=== PATIENT | female | born 1985 | race Caucasian/White ===

== ENCOUNTER 2020-01-03 16:43 | Emergency (ER) | payer OTHER ==
[~2020-01-03] VITALS: Ht 147.3 cm; Wt 53.5 kg
[2020-01-03 16:49] VITALS: BP_SYST 129
--- NOTE | 2020-01-03 16:55 | NUR ---
AMBULATED TO BED 8
--- NOTE | 2020-01-03 17:00 | NUR ---
HILDA TO ASSUME CARE. CALM, ALERT, RESP UNLABORED, SKIN WARM AND DRY.
--- NOTE | 2020-01-03 17:03 | NUR ---
UP AMBULATING STEADY TO BATHROOM, NO DYSPNEA, URINE OBTAINED
--- NOTE | 2020-01-03 17:06 | NUR ---
DR MAGAÑA IN TO ASSESS
--- NOTE | 2020-01-03 17:13 | NUR ---
LABS OBTAINED, TYPE AND SCREEN
[2020-01-03 17:31] LABS: BASOPHILS % (AUTO) 0.5 % (0.0-2.0); EOSINOPHILS # (AUTO) 0.1 K/uL (0.0-0.4); EOSINOPHILS % (AUTO) 1.8 % (0.0-4.0); HEMATOCRIT 37.8 % (36-48); LYMPHOCYTES # (AUTO) 2.3 K/uL (1.0-5.5); LYMPHOCYTES % (AUTO) 27.4 % (20.5-51.5); MEAN CORPUSCULAR HEMOGLOBIN 32 pg (27-31); MEAN CORPUSCULAR HGB CONC 34 % (32-36); MEAN CORPUSCULAR VOLUME 92 fL (79.0-98.0); MONOCYTES # (AUTO) 0.6 K/uL (0.0-1.0); MONOCYTES % (AUTO) 7.1 % (1.7-9.3); NEUTROPHILS # (AUTO) 5.3 K/uL (1.8-7.7); NEUTROPHILS % (AUTO) 63.2 % (40.0-70.0); PLATELET COUNT (AUTO) 221 K/uL (130-430); RED BLOOD CELL COUNT(AUTO) 4.12 MIL/uL (4.2-6.2); RED CELL DISTRIBUTION WIDTH 13.9 % (9.0-15.0); WHITE BLOOD COUNT (AUTO) 8.4 K/uL (4.8-10.8)
[2020-01-03 17:34] LABS: CALCIUM 8.8 mg/dL (8.4-11.0); CREATININE 0.62 mg/dL (0.55-1.30); POTASSIUM 3.6 mmol/L (3.5-5.1)
--- NOTE | 2020-01-03 18:22 | NUR ---
CALM, ALERT, RESP UNLABORED, NO CHANGE IN MENTATION. DENIES PAIN
[2020-01-03 18:56] VITALS: BP_SYST 121
--- NOTE | 2020-01-03 19:00 | NUR ---
Patient given written and verbal discharge instructions and verbalizes understanding. ER MD discussed with patient the results and treatment provided. Patient in stable condition. ID arm band removed. Patient educated on pain management and to follow up with PMD. Pain Scale 0/10 Opportunity for questions provided and answered. Medication side effect fact sheet provided.
== END 2020-01-03 18:56 | disposition home or self-care (01) ==
LOC: SED 16:43
DX: O03.4 Incomplete spontaneous abortion without complication (principal); Z3A.09 9 weeks gestation of pregnancy
CPT/HCPCS: 36415; 76801; 80048; 81002; 81025; 84702-TC; 85025; 86901; 99284